=== PATIENT | female | born 1990 | race American Indian/Alaskan Native ===

== ENCOUNTER 2017-12-02 13:08 | Emergency (ER) | payer MEDICAID ==
[2017-12-02 13:13] VITALS: RESP 18
--- NOTE | 2017-12-02 13:51 | C.PDOC ---
History Of Present Illness Patient complains of cough for one week. She also reports pain to right upper back pain and radiates to front chest. She states pain worse with deep breath and cough. Denies fever. History of asthma. Patient want xray thinks she may have pneumonia. Time Seen by Provider: 12/02/17 13:46 Chief Complaint (Nursing): Flu-like Symptoms History Per: Patient History/Exam Limitations: no limitations Onset/Duration Of Symptoms: Days (4) Past Medical History Reviewed: Historical Data, Nursing Documentation, Vital Signs Vital Signs: Last Vital Signs Temp 98.2 F 12/02/17 14:56 Pulse 62 12/02/17 14:56 Resp 18 12/02/17 14:56 BP 112/68 12/02/17 14:56 Pulse Ox 99 12/02/17 14:56 - Medical History PMH: Asthma, Bronchitis Surgical History: No Surg Hx - [facility] Procedures NEBULIZER THERAPY (04/10/03) OTHER SKIN & SUBQ I D (03/22/15) Family History: States: Unknown Family Hx - Social History Hx Tobacco Use: Yes Hx Alcohol Use: Yes Hx Substance Use: No - Immunization History Hx Tetanus Toxoid Vaccination: No Hx Influenza Vaccination: No Hx Pneumococcal Vaccination: No Review Of Systems Except As Marked, All Systems Reviewed And Found Negative. Respiratory: Positive for: Cough, Pleuritic Pain Physical Exam - Physical Exam Appears: Well, Non-toxic, No Acute Distress Skin: Warm, Dry, No Rash Head: Atraumatic, Normacephalic Eye(s): bilateral: Normal Inspection, EOMI Ear(s): Bilateral: Normal Nose: Normal Oral Mucosa: Moist Neck: Normal ROM Chest: Symmetrical, No Tenderness, No Ecchymosis, No Subcutaneous Emphysema Cardiovascular: Rhythm Regular, No Murmur Respiratory: Normal Breath Sounds, No Accessory Muscle Use, No Rales, No Rhonchi , No Wheezing Back: Normal Inspection, No CVA Tenderness, No Vertebral Tenderness, No Paraspinal Tenderness Extremity: Bilateral: Atraumatic, Normal ROM Neurological/Psych: Oriented x3, Normal Speech ED Course And Treatment O2 Sat by Pulse Oximetry: 100 Medical Decision Making Medical Decision Making: impression: cough and chest pain Plan: CXR, Motrin EKG was obtained during triage and is NS at 63 bpm no ischemia Progress Xray reviewed and shows no active disease. On re-eval patient has no fever seated comfortably in no distress. She has no wheezing and is speaking clear sentences. Explain to patient xray was normal and does not show pneumonia which was her concern. I advised prednisone for asthma and to help with any chest inflammation that is likely causing her pain. Patient stable for discharge. Disposition Counseled Patient/Family Regarding: Studies Performed, Diagnosis, Need For Followup, Rx Given - Disposition Referrals: Torey Martin MD [Staff Provider] - Disposition: HOME/ ROUTINE Disposition Time: 14:41 Condition: GOOD Additional Instructions: Take prednisone daily Use inhaler as needed Follow up with your primary medical doctor or clinic in 2-5 days for further evaluation. Return to the emergency department at any time if symptoms persist or worsen. Prescriptions: Albuterol HFA [Ventolin HFA 90 mcg/actuation (8 g)] 1 puff IH Q4 #1 puff Prednisone 50 mg PO DAILY #5 tablet Instructions: Costochondritis (ED) Forms: [facility] (Slovak) - POA Present On Arrival: None - Clinical Impression Clinical Impression: Costochondral chest pain
--- NOTE | 2017-12-02 14:39 | RAD ---
HISTORY: cough COMPARISON: Chest x-ray performed 12/02/15 TECHNIQUE: Chest PA and lateral FINDINGS: Examination limited by habitus. LUNGS: No focal consolidation. Please note that chest x-ray has limited sensitivity for the detection of pulmonary masses. PLEURA: No significant pleural effusion identified. No definite pneumothorax . CARDIOVASCULAR: The cardiomediastinal silhouette appears within normal limits of size. OSSEOUS STRUCTURES: No acute osseous abnormality identified. VISUALIZED UPPER ABDOMEN: Unremarkable. OTHER FINDINGS: None. IMPRESSION: No focal consolidation, significant pleural effusion, or definite pneumothorax identified.
[2017-12-02 14:57] VITALS: BP 112/68; PULSE 62; TEMP 98.2
[2017-12-02 18:02] VITALS: O2SAT 100
--- NOTE | 2017-12-03 15:09 | CARD ---
APPROVED REPORT EKG Measurement Heart [id number] <Conclusion> Normal sinus rhythm Normal ECG
== END 2017-12-02 14:56 | disposition home or self-care (01) ==
LOC: C.ER 13:08
DX: R07.1 Chest pain on breathing (principal)